=== PATIENT | female | born 1970 | race Two or more races ===

== ENCOUNTER 2020-12-27 10:09 | Inpatient (IN) | payer OTHER ==
[~2020-12-27] VITALS: Ht 160 cm; Wt 54.4 kg
[2020-12-27] MEDS ORDERED: SEROQUEL XR150 MG (10:17)
[2020-12-27] MEDS ORDERED: LOTREL 10-20 M1 EACH (10:17)
[2020-12-27] MEDS ORDERED: ATIVAN0.5 M1 (10:17)
== END 2021-01-01 14:24 | disposition home or self-care (01) | DRG 389 ==
LOC: ER 10:09 → SEC-K 19:53 → MEDJ 12-28 19:45
PROVIDERS: ADMIT Internal Medicine; ATTEND Internal Medicine
PROC: 02HV33Z Insertion of Infusion Device into Superior Vena Cava, Percutaneous Approach (ICD-10-PCS; principal; 2020-12-27)
PROC: BW21ZZZ Computerized Tomography (CT Scan) of Abdomen and Pelvis (ICD-10-PCS; 2020-12-27)
DX: K56.699 Other intestinal obstruction unspecified as to partial versus complete obstruction (principal); C18.9 Malignant neoplasm of colon, unspecified; C78.7 Secondary malignant neoplasm of liver and intrahepatic bile duct; F32.9 Major depressive disorder, single episode, unspecified; I10 Essential (primary) hypertension; Z20.822 Contact with and (suspected) exposure to COVID-19

== ENCOUNTER 2021-01-09 15:49 | Inpatient (IN) | payer OTHER ==
[~2021-01-09] VITALS: Ht 160 cm; Wt 54.4 kg
[~2021-01-09 15:49] MED LIST: ATIVAN0.5 M1; LOTREL 10-20 M1 EACH; SEROQUEL XR150 MG
[2021-01-09] MEDS ORDERED: FENTANYL1 EAC4 TD (16:03)
[2021-01-09] MEDS ORDERED: REGLAN5 MG/5 ML PO (16:04)
--- NOTE | 2021-01-09 16:08 | NUR ---
SE RECIBE PACIENTE ALERTA, ORIENTADA X 3 ESFERAS REFIERE TENER DOLOR ABDOMINAL. PTE REFIERE QUE PRESENTO EN AREA DE ABDOMEN JAYDEN SI FUERA UN ABSCESO, EN LA TARDE DE PIERRE, EN AREA DE CIRUGIA DE HACE UN ANO LE REVENTO Y SE FORMO UN HUECO,SE OBSERVA AREA DE DE ABDOMEN SUPURANDO COLOR AMARILLO CON PARTICULAS, FETIDO JAYDEN SI FUERA ESCRETA. SE ESTIMAN S/V SE UBICA EN CINDY # 14. PTE HX.CANCER DE COLON, PTE .
--- NOTE | 2021-01-09 16:44 | NUR ---
PTE ALERTA Y ORIENTADA X3 EN CAMA CON BARANDAS ELEVADAS. SE CANALIZA AREA FAUSTO DE EDEMA Y DE ENROJECIMIENTO. SE LE DAISHA MUESTRAS DE LAB. RICKEY ORDEN MEDICA BAJO MEDIDAS ASEPTICAS E ESTERIL. SE LE JOSE RAUL WALL CULTURE ABDOMINAL RICKEY ORDEN MEDICA.SE LE ADMINISTRAN MEDICAMENTOS RICKEY ORDEN MEDICA Y SE EDUCA SOBRE TRATAMIENTO MEDICO. PTE MANEJADA POR RN.ALONZO.
== END 2021-01-19 12:34 | disposition home or self-care (01) | DRG 375 ==
LOC: ER 15:49 → MEDI 19:24
PROVIDERS: ADMIT Internal Medicine; ATTEND Internal Medicine
PROC: 4A12X4Z Monitoring of Cardiac Electrical Activity, External Approach (ICD-10-PCS; principal; 2021-01-10)
DX: C78.6 Secondary malignant neoplasm of retroperitoneum and peritoneum (principal); N17.8 Other acute kidney failure; E87.1 Hypo-osmolality and hyponatremia; K63.2 Fistula of intestine; F32.9 Major depressive disorder, single episode, unspecified; I10 Essential (primary) hypertension; F41.9 Anxiety disorder, unspecified; E86.0 Dehydration; Z53.1 Procedure and treatment not carried out because of patient's decision for reasons of belief and group pressure; E87.6 Hypokalemia